=== PATIENT | female | born 2000 | race Caucasian/White ===

== ENCOUNTER 2024-09-06 11:32 | Emergency (ER) | payer OTHER ==
[~2024-09-06] VITALS: Ht 177.8 cm; Wt 119.3 kg
--- OUTSIDE RECORDS SUMMARY | 2024-09-06 11:39 | XMS ---
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 MEDICAL GROUPSTANISLAW INTERNAL PHONE: [phone] Aiden has no Care Guidelines for this patient. E.Ines VISIT COUNT (12 MO.) 1 GABO Koenig [facility] TOTAL 2 NOTE: Visits indicate total known visits. ED/UCC VISIT TRACKING (12 MO.) 09/06/2024 11:33 [facility] [place] TYPE: Emergency COMPLAINT: - ABDOMINAL PAIN 08/22/2024 11:17 [facility] [place] TYPE: Emergency DIAGNOSES: - Unspecified sprain of left wrist, initial encounter - hand/ wrist pain INPATIENT VISIT TRACKING (12 MO.) No inpatient visits to display in this time frame [id number]
[2024-09-06] MEDS ORDERED: OFLOXACIN5 ML OTIC (11:46)
[2024-09-06] MEDS ORDERED: [UNRECOGNIZED DRUG - OTHER] PO (11:46)
[2024-09-06] MEDS ORDERED: BUSPIRONE HCL15 MG PO (11:46)
[2024-09-06] MEDS ORDERED: ONDANSETRON 4 MG TAB ODT SL ONE (13:30)
[2024-09-06] MEDS ORDERED: LIDOCAINE & ANTACID 35 ML BTL PO ONE (13:30)
[2024-09-06 13:44] LABS: BILIRUBIN, URINE NEGATIVE (negative); BLOOD/HGB, URINE NEGATIVE (Negative); KETONE, URINE NEGATIVE (Negative); LEUK ESTERASE, URINE NEGATIVE (negative); NITRITE, URINE NEGATIVE (negative); PH, URINE 8.5 (5-7)
[2024-09-06 13:50] LABS: BASOPHILS 1.7 % (0-2); EOSINOPHILS 0.7 % (0-6); HEMATOCRIT 41.4 % (35.0-50.0); HEMOGLOBIN 13.9 g/dL (12.0-18.0); LYMPHOCYTES 23.4 % (24-44); MCH 30.6 (27-36); MCHC 33.6 g/dl (30-36); MCV 90.9 fl (81-99); MONOCYTES 3.3 % (0-12); NEUTROPHILS 70.9 % (39-80); PLATELET COUNT 262 K/uL (140-440); RBC 4.56 M/ul (4.3-5.7); RDW 14.3 (10.5-15.0)
[2024-09-06 14:12] LABS: ALBUMIN 3.9 g/dL (3.4-5.0); ALBUMIN/GLOBULIN RATIO 0.87 (1.1-2.4); ANION GAP 14.1 (7-21); BILIRUBIN, TOTAL 0.5 ng/dL (0.2-1.0); BUN/CREATININE RATIO 13.15 (6.0-28.6); CALCIUM 9.5 mg/dL (8.5-10.1); CREATININE, SERUM 0.76 mg/dL (0.55-1.02); POTASSIUM 4.1 mmol/L (3.5-5.1); PROTEIN, TOTAL 8.4 g/dL (6.4-8.2)
[2024-09-06] MEDS ORDERED: PEPCID20 MG PO (14:41)
[2024-09-06 14:48] VITALS: BP 126/75
== END 2024-09-06 14:48 | disposition home or self-care (01) ==
LOC: ED 11:32
PROVIDERS: Emergency Medicine
DX: R10.13 Epigastric pain (principal); Z79.899 Other long term (current) drug therapy
CPT/HCPCS: 36415; 80053; 81003; 83690; 84703; 85025; 99284; A9270

== ENCOUNTER 2024-10-16 09:19 | Emergency (ER) | payer OTHER ==
[~2024-10-16] VITALS: Ht 177.8 cm; Wt 120.0 kg
[~2024-10-16 09:19] MED LIST: BUSPIRONE HCL15 MG PO; OFLOXACIN5 ML OTIC; PEPCID20 MG PO; [UNRECOGNIZED DRUG - OTHER] PO
[2024-10-16 10:05] VITALS: BP 130/93
== END 2024-10-16 10:06 | disposition home or self-care (01) ==
LOC: ED 09:19
DX: G56.02 Carpal tunnel syndrome, left upper limb (principal); Z88.0 Allergy status to penicillin; Z79.899 Other long term (current) drug therapy
CPT/HCPCS: 99283

== ENCOUNTER 2024-11-26 02:54 | Emergency (ER) | payer OTHER ==
[~2024-11-26] VITALS: Ht 177.8 cm; Wt 118.1 kg
[2024-11-26] MEDS ORDERED: ALBUTEROL/IPRATROPIUM 3 ML NEB INH ONE (03:15)
[2024-11-26] MEDS ORDERED: CYCLOBENZAPRINE10 MG PO (03:53)
[2024-11-26] MEDS ORDERED: CYCLOBENZAPRINE HCL 10 MG HOME.PACK PO ONE (04:00)
[2024-11-26] MEDS ORDERED: KETOROLAC TROMETHAMINE 60 MG/2 ML VIAL IM ONE (04:00)
[2024-11-26 04:33] VITALS: BP 130/69
--- NOTE | 2024-11-26 15:15 | EKG ---
[facility] [address] [facility] [place] [address] Signed Sinus rhythm with marked sinus arrhythmia Otherwise normal ECG No previous ECGs available Confirmed by Matthew Cast MD () on 11/26/2024 3:14:59 PM Electronically Signed By: MATTHEW CAST MD 11/26/24 1515 PATIENT NAME: GRISEL ROBERTSON Electrocardiogram DATE OF : [birth year] PHYSICIAN: MATTHEW CAST MD REPORT #: [id number] REPORT IS CONFIDENTIAL AND NOT TO BE RELEASED WITHOUT AUTHORIZATION
== END 2024-11-26 04:30 | disposition home or self-care (01) ==
LOC: ED 02:54
DX: R07.89 Other chest pain (principal); Z88.0 Allergy status to penicillin
CPT/HCPCS: 71045; 93005; 93010; 94640; 96372; 99285-25; J1885